=== PATIENT | female | born 1955 | race Two or more races ===

== ENCOUNTER 2020-07-24 09:00 | Inpatient (IN) | payer OTHER ==
[~2020-07-24] VITALS: Ht 154.9 cm; Wt 63.5 kg
[2020-07-24] MEDS ORDERED: PRILOSEC10 MG PO (14:03)
[2020-07-24] MEDS ORDERED: DICY20TA PO (14:04)
[2020-07-24] MEDS ORDERED: NORVASC5 MG PO (14:04)
[2020-07-24] MEDS ORDERED: AVAPRO300 MG PO (14:04)
[2020-07-24] MEDS ORDERED: FIORICET (14:05)
[2020-07-24] MEDS ORDERED: VITAL-D RX TAB1 EACH PO (14:06)
[2020-07-24] MEDS ORDERED: PRAVASTATIN SOD40 MG PO (14:06)
[2020-07-31] MEDS ORDERED: OMEPRAZOLE20 MG (08:31)
[2020-07-31] MEDS ORDERED: VITAMIN D31250 MCG (08:31)
[2020-07-31] MEDS ORDERED: BUTALB-ACETAMI1 EAC2 (08:32)
== END 2020-08-03 10:27 | disposition home or self-care (01) | DRG 331 ==
LOC: O/R 07-31 05:30 → SURH 07-31 07:00
PROVIDERS: ADMIT Surgery; ATTEND Surgery
PROC: 0DJD8ZZ Inspection of Lower Intestinal Tract, Via Natural or Artificial Opening Endoscopic (ICD-10-PCS; 2020-07-31)
PROC: 0DBN4ZZ Excision of Sigmoid Colon, Percutaneous Endoscopic Approach (ICD-10-PCS; principal; 2020-07-31 07:00)
DX: K57.32 Diverticulitis of large intestine without perforation or abscess without bleeding (principal)